=== PATIENT | male | born 1950 | race Caucasian/White ===

== ENCOUNTER 2020-09-16 09:39 | Emergency (ER) | payer MEDICARE ==
[~2020-09-16] VITALS: Ht 180.3 cm; Wt 49.9 kg
[~2020-09-16 09:39] MED LIST: BACIGUENT3.5 GM OP
[2020-09-16 10:27] LABS: HEMOGLOBIN 16.8 gm/dl (14.0-17.5); RED BLOOD COUNT 5.14 M/UL (4.20-5.50); WHITE BLOOD COUNT 4.6 K/UL (4.5-11.0)
[2020-09-16 11:08] LABS: BUN/CREATININE RATIO 15 (0-10)
== END 2020-09-16 11:00 | disposition home or self-care (01) ==
LOC: ER1 09:39
PROVIDERS: Physician Assistant Medical
DX: U07.1 COVID-19 (principal)
CPT/HCPCS: 80053; 85025; 96365; 99284

== ENCOUNTER 2020-09-16 12:36 | Emergency (ER) | payer MEDICARE | END 2020-09-16 16:18 | disposition home or self-care (01) | LOC: ER1 12:36 | DX: U07.1 COVID-19 (principal); Z23 Encounter for immunization | CPT/HCPCS: 71045; 80053; 85025; 96365; 99283; 99284; M0239 ==

== ENCOUNTER → 2020-12-09 | Outpatient (CLI) | payer MEDICARE, OTHER ==
[2020-12-09 09:51] LABS: BUN/CREATININE RATIO 19 (0-10)
== END ==
LOC: LAB 08:48
PROVIDERS: Family Medicine
DX: K52.9 Noninfective gastroenteritis and colitis, unspecified (principal); E78.5 Hyperlipidemia, unspecified
CPT/HCPCS: 36415; 80053; 80061; 87045; 87046; 87449; 89055

== ENCOUNTER → 2020-12-14 | Outpatient (CLI) | payer MEDICARE, OTHER | LOC: KOH-I 08:00 | DX: M75.101 Unspecified rotator cuff tear or rupture of right shoulder, not specified as traumatic (principal); S43.491A Other sprain of right shoulder joint, initial encounter | CPT/HCPCS: 73221 ==

== ENCOUNTER 2021-08-15 22:40 | Emergency (ER) | payer MEDICARE ==
[2021-08-16 00:21] LABS: HEMOGLOBIN 14.6 gm/dl (14.0-17.5); RED BLOOD COUNT 4.4 M/UL (4.20-5.50); WHITE BLOOD COUNT 9.7 K/UL (4.5-11.0)
[2021-08-16 00:38] LABS: BUN/CREATININE RATIO 14 (0-10)
== END 2021-08-16 01:08 | disposition home or self-care (01) ==
LOC: ER1 22:40
PROVIDERS: Emergency Medicine
DX: R33.9 Retention of urine, unspecified (principal)
CPT/HCPCS: 51702; 80048; 81001; 85025; 87086; 99283

== ENCOUNTER → 2021-10-25 | Outpatient (CLI) | payer MEDICARE | LOC: SLEEP 21:30 | DX: G47.33 Obstructive sleep apnea (adult) (pediatric) (principal) | CPT/HCPCS: 95811 ==